=== PATIENT | male | born 1970 ===

== ENCOUNTER → 2019-04-09 | Outpatient (CLI) | payer BC, OTHER ==
[~2019-04-09] MED LIST: HOLD METFORMIN - RECEIVED CONTRAST 20 ML VIAL IV SCH; IOHEXOL 350 MG/ML 100 ML (OMNIPAQUE 350) VIAL IV ONE; NS 100 ML (IVPB) BAG IV ONE
--- NOTE | 2019-04-09 10:03 | Diagnostic Imaging Report ---
PROCEDURE: CT angiography of the chest with contrast. TECHNIQUE: Multiple contiguous axial images were obtained through the chest after uneventful bolus administration of intravenous contrast. 3D reconstructed CTA MIP acquisitions were also performed. Auto Exposure Controls were utilized during the CT exam to meet ALARA standards for radiation dose reduction. DATE: April 09, 2019. COMPARISON: None. INDICATION: 49-year-old male, history of aortic valve replacement. Evaluation for thoracic aortic aneurysm. FINDINGS: There is a 7 mm left lower lobe pulmonary nodule on axial image 87. There is no additional identified pulmonary nodule. There is no lung mass. There is no focal airspace consolidation. There is no pneumothorax. There is no pleural effusion. The central airways are patent. There is aortic valve hardware. The proximal ascending thoracic aorta measures up to 3.2 cm in diameter. The distal ascending thoracic aorta measures up to 2.6 cm in diameter. The proximal descending thoracic aorta measures 3.1 cm in diameter. The distal descending thoracic aorta measures 2.4 cm in diameter. The imaged portions of the abdominal aorta are normal in caliber. There is no evidence of aortic dissection. The main pulmonary artery diameter measures 3.0 cm which is just slightly above upper limits of normal. There is no identified pulmonary embolus. The heart is not enlarged. There is no pericardial effusion. There is no identified abnormally enlarged mediastinal, hilar, or axillary lymph node which meets CT size criteria for adenopathy. There is cholelithiasis without evidence of acute cholecystitis. Additional evaluation of the imaged portions of the upper abdomen is unremarkable. There are median sternotomy wires. There is no identified acute bony abnormality. IMPRESSION: 1. Normal caliber of the thoracic aorta and imaged portions of the abdominal aorta. No evidence of aortic dissection. 2. The main pulmonary artery diameter is slightly enlarged and measures 3 cm in diameter. No identified pulmonary embolus. 3. There is a 7 mm noncalcified left lower lobe pulmonary nodule. Recommend followup CT chest in 3-6 months to evaluate for stability if comparison imaging is not available to demonstrate long-term stability. 4. Cholelithiasis without evidence of acute cholecystitis. Dictated by: Dictated on workstation # [id number]
== END ==
LOC: RAD 08:19
PROVIDERS: ATTEND Internal Medicine Cardiovascular Disease
DX: K80.20 Calculus of gallbladder without cholecystitis without obstruction (principal); I71.2 Thoracic aortic aneurysm, without rupture; R91.1 Solitary pulmonary nodule; Z95.2 Presence of prosthetic heart valve
CPT/HCPCS: 71275; 93306